=== PATIENT | female | born 1975 | race African-American/Black ===

== ENCOUNTER 2020-01-11 11:59 | Emergency (ER) | payer OTHER ==
[2020-01-11] MEDS ORDERED: ONDANSETRON 4 MG/2 ML VIAL ONE (13:21)
[2020-01-11] MEDS ORDERED: MORPHINE 4 MG/ML SYR ONE (13:21)
[2020-01-11 13:24] LABS: Absolute Lymphocytes (CBC) 1.5 K/uL (0.7-4.9); Basophils % 1.2 % (0-1.3); Hematocrit 36.7 % (36.0-45.0); MPV 7.9 fL (7.6-11.3); RBC Red Blood Cell Count 4.01 M/uL (3.86-4.86)
[2020-01-11 13:25] LABS: Urine Blood 3+ (NEG); Urine Glucose NEGATIVE (NEG); Urine Protein 2+ (NEG)
[2020-01-11 13:40] LABS: Albumin 3.5 g/dL (3.4-5.0); Bilirubin Direct 0.1 mg/dL (0-0.2); Bilirubin Total 0.9 mg/dL (0.2-1.0); Potassium 3.8 mmol/L (3.5-5.1); Protein, Total 7.5 g/dL (6.4-8.2)
--- NOTE | 2020-01-11 14:10 | RAD REPORT ---
EXAM DESCRIPTION: CT - Stone Protocol - 01/11/2020 1:48 pm CLINICAL HISTORY: left flank pain, pelvic pain COMPARISON: No comparisons TECHNIQUE: Axial 5 mm thick images were obtained without oral or IV contrast. The [id number] span s the entirety of the system including uppermost abdomen and lung bases. All CT scans are performed using dose optimization technique as appropriate and may include automated exposure control or mA/KV adjustment according to patient size. FINDINGS: No hydronephrosis is present and no obstructing ureteral calculi. No suspicious renal mass es. Isodense masses and pyelonephritis are not excluded on a stone protocol CT scan. No significant a drenal finding. Mostly contracted urinary bladder shows no suspicious findings. Prominent uterus is present. Myometrium is heterogeneous with no discrete myometrial based mass ident ifiable. Ovaries are difficult to clearly distinguished from the adjacent isodense on opacified bowel . There does appear to be in normal sized right ovary. In the low midline pelvis a cystic mass 6.9 x 6.7 x 6.0 cm is present. No fat, calcification or septation component. This is most likely a cystaden ariela given the CT characteristics. A more aggressive ovarian mass is not excluded. A non ovarian mesen teric cystic mass is possible but would be much less commonly encounter de. Phleboliths are seen in t he pelvic floor. In the posterior subcapsular right lobe liver there is a 4.3 x 1.7 centimeter low-attenuation mass. A ttenuation value is 27 Hounsfield units. No other focal liver parenchymal process seen. Spleen and pa ncreas show no suspicious findings. No gallbladder or biliary tree abnormality identified. No suspicious bowel findings. A 2.3 centimeter oval fluid attenuation mass in the right mid abdomen is likely an incidental mesenteric cyst. This is not regarded as significant. No hernia, mass or bulky lymphadenopathy noted. No free air, free fluid or inflammatory stranding. No significant bony abnormality. IMPRESSION: A 6.9 centimeter cystic mass fills the low midline pelvis. This is probably left ovarian in origin and most likely cystadenoma. No aggressive characteristics seen although based on size, outpatient surgical consultation would be recommended. Repeat imaging with oral and IV contrast or pelvic sonography may be helpful but would n ot likely substantially change the need for surgical consultation. No hydronephrosis, obstructing calculus or acute finding. Isodense masses and pyelonephritis are not excluded on stone protocol technique.
--- NOTE | 2020-01-11 15:21 | RAD REPORT ---
EXAM DESCRIPTION: US - Pelvis Complete - 01/11/2020 2:56 pm CLINICAL HISTORY: left sided pelvic pain, rule out torsion COMPARISON: Protocol dated 01/11/2020 TECHNIQUE: Transabdominal pelvic sonography was performed. FINDINGS: Uterus is approximately 9.1 x 4.3 x 5.9 cm. No endometrial or myometrial mass. No abnormal fluid collection in the cul de sac. Right ovary is normal size and shows normal blood flow in the ovarian stroma. Approximately [address] cystic mass is present in the midline pelvis appearing to arise from the left ovary. Left ovarian tissue is seen along the left lateral margin. Mass compresses the bladder. The large cystic mass thi n-walled with no septation or mural nodule. Cystadenoma remains the most likely etiology. IMPRESSION: Approximately 7 cm midline cystic mass is identified and is the correlate to the CT find ing. Mass appears to arise from the left ovary would be most likely be a cystadenoma. 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
--- NOTE | 2020-01-11 16:11 | ER ---
Nurse's Notes [facility] Name: Jayleen Albarado Age: 44 yrs Sex: Female : 1975 Arrival Date: 01/11/2020 Time: 12:04 Bed 18 Private MD: Diagnosis: Other ovarian cysts Presentation: 01/10 12:33 Chief complaint: Patient states: Woke up this morning with abdominal, back, and thigh rb3 pain. pain 5/10. 12:33 Coronavirus screen: At this time, the client does not indicate any symptoms associated rb3 with coronavirus-19. Ebola Screen: Patient denies travel to an Ebola-affected area in the 21 days before illness onset. Initial Sepsis Screen: Does the patient meet any 2 criteria? No. Patient's initial sepsis screen is negative. Does the patient have a suspected source of infection? Yes: No. Patient's initial sepsis screen is negative. Risk Assessment: Do you want to hurt yourself or someone else? Patient reports no desire to harm self or others. Onset of symptoms was January 11, 2020 at 09:00. 12:33 Method Of Arrival: Ambulatory rb3 12:33 Acuity: FREDDY 3 rb3 Triage Assessment: 12:33 General: Appears uncomfortable, Behavior is calm, cooperative. Pain: Complains of pain rb3 in LLQ, low back, thigh Pain currently is 5 out of 10 on a pain scale. Pain began 0900 today. Neuro: Level of Consciousness is awake, alert, obeys commands, Oriented to person, place, time, situation. Cardiovascular: Capillary refill < 3 seconds. Respiratory: Airway is patent Respiratory effort is even, unlabored, Respiratory pattern is regular, symmetrical. GI: Reports nausea. : No signs and/or symptoms were reported regarding the genitourinary system. 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 - Social history:: Smoking status: Patient/guardian denies using. Screenin:20 Abuse screen: Denies threats or abuse. Denies injuries from another. Nutritional ae4 screening: No deficits noted. Tuberculosis screening: No symptoms or risk factors identified. Fall Risk None identified. Assessment: 12:33 General: see triage assessment. rb3 13:30 Reassessment: Patient appears in no apparent distress at this time. No changes from rb3 previously documented assessment. 14:30 Reassessment: Patient appears in no apparent distress at this time. Patient and/or rb3 family updated on plan of care and expected duration. Pain level reassessed. Patient is alert, oriented x 3, equal unlabored respirations, skin warm/dry/pink. 15:30 Reassessment: Patient appears in no apparent distress at this time. No changes from rb3 previously documented assessment. 16:20 Reassessment: Patient appears in no apparent distress at this time. Patient and/or rb3 family updated on plan of care and expected duration. Pain level reassessed. Patient is alert, oriented x 3, equal unlabored respirations, skin warm/dry/pink. Vital Signs: 12:33 BP 129 / 86; Pulse 77; Resp 17; Temp 98.8; Pulse Ox 100% ; Weight 78.47 kg; Height 5 rb3 ft. 8 in. (172.72 cm); Pain 5/10; 13:30 BP 141 / 90; Pulse 81; Resp 17; Pulse Ox 100% ; rb3 14:30 BP 139 / 85; Pulse 74; Resp 16; Pulse Ox 100% ; rb3 15:30 BP 127 / 79; Pulse 80; Resp 17; Pulse Ox 100% ; rb3 12:33 Body Mass Index 26.30 (78.47 kg, 172.72 cm) rb3 ED Course: 12:04 Patient arrived in ED. as 12:33 Arm band placed on right wrist. rb3 12:33 Patient has correct armband on for positive identification. Bed in low position. Call rb3 light in reach. Side rails up X 1. 12:37 Tevin Milton PA is PHCP. [facility] 12:37 All Cervantes MD is Attending Physician. [facility] 12:43 Charlene Ornelas, JUAN is Primary Nurse. rb3 12:45 Triage completed. rb3 13:10 Initial lab(s) drawn, by va, sent to lab. Inserted saline lock: 20 gauge in right ca1 antecubital area, using aseptic technique. Blood collected. 13:48 CT Stone Protocol In Process Unspecified. EDMS 14:56 US Pelvis Complete In Process Unspecified. EDMS 16:08 Keven Shepherd MD is Referral Physician. m 16:19 IV discontinued, intact, bleeding controlled, No redness/swelling at site. Pressure ae4 dressing applied. 16:20 No provider procedures requiring assistance completed. rb3 Administered Medications: 13:18 Not Given (Patient Refused): morphine 4 mg IVP once; RASS on ADMIN: Combtv4, Very rb3 Agttd3, Agttd2, Rstlss1, AlertClm0, Drwsy-1, Lt Sdtn-2, Mod Sdtn-3, Dp Sdtn-4, UnArsble-5 13:18 Not Given (Patient Refused): Zofran (Ondansetron) 4 mg IVP once; over 2 minutes rb3 Outcome: 16:11 Discharge ordered by MD. [facility] 16:20 Discharged to home ambulatory, with significant other. ae4 16:20 Condition: stable 16:20 Discharge instructions given to patient, Instructed on discharge instructions, follow up and referral plans. medication usage, Demonstrated understanding of instructions, follow-up care, medications, Prescriptions given X 2. 16:21 Patient left the ED. ae4 Signatures: Dispatcher [employer] EDMS Tevin Milton PA PA jmm Martinez, Amelia as Acob, Cheryl, RN RN Chandan Clifton RN RN ae4 Charlene Ornelas RN RN rb3
--- NOTE | 2020-01-11 16:11 | EDPHYS ---
Physician Documentation [facility] Name: Jayleen Albarado Age: 44 yrs Sex: Female : 1975 Arrival Date: 01/11/2020 Time: 12:04 Bed 18 Private MD: ED Physician All Cervantes HPI: 01/10 12:52 This 44 yrs old Black Female presents to ER via Ambulatory with complaints of Abdominal jmm Pain, Thigh Pain, Low Back Pain. 12:52 The patient presents with abdominal pain in the left lower quadrant. Onset: The jmm symptoms/episode began/occurred acutely. The symptoms do not radiate. Associated signs and symptoms: Pertinent negatives: nausea and vomiting, diarrhea, fever. The symptoms are described as achy, sharp. Modifying factors: The symptoms are alleviated by nothing, the symptoms are aggravated by nothing. This is a 44 year old female with no chronic medical conditions that presents to the ED with complaints of left lower abdominal pain which awoke her this morning. Denies fever, vomiting, diarrhea. . 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 - Social history:: Smoking status: Patient/guardian denies using. ROS: 12:52 Constitutional: Negative for fever, chills, and weight loss, Cardiovascular: Negative jmm for chest pain, palpitations, and edema, Respiratory: Negative for shortness of breath, cough, wheezing, and pleuritic chest pain. 12:52 Abdomen/GI: Positive for abdominal pain. 12:52 Back: Positive for pain at rest. 12:52 All other systems are negative. Exam: 12:52 Constitutional: This is a well developed, well nourished patient who is awake, alert, jmm and in no acute distress. Head/Face: atraumatic. Eyes: EOMI, no conjunctival erythema appreciated ENT: Moist Mucus Membranes Neck: Trachea midline, Supple Chest/axilla: Normal chest wall appearance and motion. Cardiovascular: Regular rate and rhythm. No edema appreciated Respiratory: Normal respirations, no respiratory distress appreciated Abdomen/GI: Non distended, soft Back: Normal ROM Skin: General appearance color normal MS/ Extremity: Moves all extremities, no obvious deformities appreciated, no edema noted to the lower extremities Neuro: Awake and alert, normal gait Psych: Behavior is normal, Mood is normal, Patient is cooperative and pleasant Vital Signs: 12:33 BP 129 / 86; Pulse 77; Resp 17; Temp 98.8; Pulse Ox 100% ; Weight 78.47 kg; Height 5 rb3 ft. 8 in. (172.72 cm); Pain 5/10; 13:30 BP 141 / 90; Pulse 81; Resp 17; Pulse Ox 100% ; rb3 14:30 BP 139 / 85; Pulse 74; Resp 16; Pulse Ox 100% ; rb3 15:30 BP 127 / 79; Pulse 80; Resp 17; Pulse Ox 100% ; rb3 12:33 Body Mass Index 26.30 (78.47 kg, 172.72 cm) rb3 MDM: 12:52 Patient medically screened. [facility] 16:07 Data reviewed: vital signs, nurses notes. Counseling: I had a detailed discussion with gina the patient and/or guardian regarding: the historical points, exam findings, and any diagnostic results supporting the discharge/admit diagnosis, lab results, radiology results, the need for outpatient follow up, to return to the emergency department if symptoms worsen or persist or if there are any questions or concerns that arise at home. ED course: Pain is relieved in the ED. Large mass in pelvis discussed with the patient. Will follow up with ophthalmic technologist for further evaluation. Patient understood and agrees with the plan of care. . 01/10 13:00 Order name: Basic Metabolic Panel; Complete Time: 13:42 [facility] 01/10 13:00 Order name: CBC with Diff; Complete Time: 13:30 [facility] 01/10 13:00 Order name: Hepatic Function; Complete Time: 13:42 [facility] 01/10 13:00 Order name: Lipase; Complete Time: 13:42 [facility] 01/10 13:20 Order name: Urine Dipstick--Ancillary (enter results); Complete Time: 13:30 01/10 13:20 Order name: Urine --Ancillary (enter results); Complete Time: 13:30 01/10 13:00 Order name: IV Saline Lock; Complete Time: 13:12 [facility] 01/10 13:00 Order name: Labs collected and sent; Complete Time: 13:12 [facility] 01/10 13:00 Order name: Urine Dipstick-Ancillary (obtain specimen); Complete Time: 13:12 [facility] 01/10 13:00 Order name: Urine Test (obtain specimen); Complete Time: 13:12 [facility] 01/10 13:00 Order name: CT Stone Protocol; Complete Time: 14:12 [facility] 01/10 14:15 Order name: US Pelvis Complete; Complete Time: 15:42 [facility] Administered Medications: 13:18 Not Given (Patient Refused): morphine 4 mg IVP once; RASS on ADMIN: Combtv4, Very rb3 Agttd3, Agttd2, Rstlss1, AlertClm0, Drwsy-1, Lt Sdtn-2, Mod Sdtn-3, Dp Sdtn-4, UnArsble-5 13:18 Not Given (Patient Refused): Zofran (Ondansetron) 4 mg IVP once; over 2 minutes rb3 Disposition: 16:27 Co-signature as Attending Physician, All Cervantes MD. rn Disposition: 01/11/20 16:11 Discharged to Home. Impression: Other ovarian cysts. - Condition is Stable. - Discharge Instructions: Ovarian Cyst. - Prescriptions for Ibuprofen 800 mg Oral Tablet - take 1 tablet by ORAL route every 8 hours As needed take with food; 30 tablet. Tramadol 50 mg Oral Tablet - take 1 tablet by ORAL route every 8 hours as needed; 12 tablet. - Medication Reconciliation Form, Thank You Letter, Antibiotic Education, Prescription Opioid Use form. - Follow up: Keven Shepherd MD; When: 1 - 2 days; Reason: Recheck today's complaints, Continuance of care, Re-evaluation by your physician. Signatures: Dispatcher [employer] EDMS Tevin Milton PA PA [facility] All Cervantes MD MD rn Elliott, Andrea, RN RN ae4 Charlene Ornelas, JUAN RN rb3 Corrections: (The following items were deleted from the chart) 16:21 16:11 01/11/2020 16:11 Discharged to Home. Impression: Other ovarian cysts. Condition ae4 is Stable. Forms are Medication Reconciliation Form, Thank You Letter, Antibiotic Education, Prescription Opioid Use. Follow up: Keven Shepherd; When: 1 - 2 days; Reason: Recheck today's complaints, Continuance of care, Re-evaluation by your physician. gina
[2020-01-11 21:09] VITALS: TEMP 98.8; O2SAT 100
[2020-01-11 21:12] VITALS: BP 139/85
== END 2020-01-11 16:21 | disposition home or self-care (01) ==
LOC: ER 11:59
DX: N83.299 Other ovarian cyst, unspecified side (principal)
CPT/HCPCS: 36415; 74176; 76377; 76856; 80048; 80076; 81003; 81025; 83690; 85025; 99284; J2405

== ENCOUNTER 2024-04-06 20:31 | Emergency (ER) | payer BC, SELFPAY ==
--- OUTSIDE RECORDS SUMMARY | 2024-04-06 20:33 | XMS REPORT | Continuity of Care Document ---
Author Name Unknown Address [address] [place] [address] [facility] thconnect Address [address] [place] [address] Care Team Providers Care Vice President Education Name Role Phone Pcp, Patient Does Not Have A Primary Care Physic ji [email or web address] Attending Clinician Valerie lopez Doctor Unassigned, [place] Attending Clinician U Anastasia Cedeno MA Attending Clinician UnaROSITA Morales Attending Clinician Unavailable NASH ASHBY Attending Clinician Unavailable [email or web address] Admitting Clinician Valerie lopez Payers Payer Name Policy Type Policy Number Effective Date Expirati on Date Source [employer] CHOICE POS II [id number] 2019 00:00:00 Problems Condition Name Condition Details Condition Category Status Onset Date Resolution Date Last Treatment Date Treating Clinician Comments Source Breast tenderness in female Breast tenderness in female Disease Active 07-19 00:00: 00 [facility] Allergies, Adverse Reactions, Alerts Allergy Name Allergy Type Status Severity Reaction(s) Onset Date Inactive Date Treating Clinician Comments Source NO KNOWN ALLERGIE S Drug Class Active [facility] Social History Social Habit Start Date Stop Date Quantity Comments Source History of tobacco use Smoker [facility] Alcohol intake 2020-07-19 00:00:00 2020-07-19 00:00:00 Current drinker of alcohol (finding) [facility] Tobacco use and exposure 2020-01-12 00:00:00 2020-01-12 00:00:00 Never used [facility] History SDOH Alcohol Frequency 2020-01-12 00:00:00 2020-01-12 00:00:00 99 [facility] History SDOH Alcohol Std Drinks 2020-01-12 00:00:00 2020-01-12 00:00:00 99 [facility] History SDOH Alcohol Binge 2020-01-12 00:00:00 2020-01-12 00:00:00 99 [facility] Alcohol Comment 2020-01-12 00:00:00 2020-01-12 00:00:00 rarely [facility] Sex Ass[birth year] At 1975 00:00:00 1975 00:00:00 [facility] Smoking Status Start Date Stop Date Source Unknown if ever smoked [facility] Former smoker 2020-01-12 00:00:00 2020-01-12 00:00:00 [facility] Medications Ordered Medication Name Filled Medication Name Start Date Stop Date Current Medication? Ordering Clinician Indication Dosage Frequency Signature (SIG) Comments Components Source valACYclovi r (VALTREX) 1 gram tablet 05-25 00:00: 00 Yes [id number] 1g Take 1 tablet by mouth daily. Take for 5 days as needed for outbreaks [facility] ibuprofen 800 mg tablet 2019-02 00:00: 00 Yes [facility] traMADoL 50 mg tablet 2019-02 00:00: 00 Yes [facility] Procedures Procedure Date / Time Performed Performing Clinicia n Source EXTERNAL PROVIDER RECORDS 2021-02-14 06:01:00 Doctor Unassigned, [place] [facility] ASSIGNMENT OF BENEFITS 2020-01-12 21:23:42 Docto r Unassigned, [place] [facility] EXTERNAL MAMMOGRAM 2019-10-24 00:00:00 Doctor Un assigned, [place] [facility] Encounters Start Date/Time End Date/Time Encounter Type Admission Type Attending Clinicians Care Facility Care Department Encounter ID Source 2022-12-09 00:00:00 2022-12-09 00:00:00 Outpatient GC_GCBZW_Ka diyala_S [facility] [id number] [facility] 2021-02-14 00:00:00 2021-02-14 00:00:00 Orders Only Doctor Unassigned, [place] [facility] [id number] [facility] 2021-02-01 00:00:00 2021-02-01 00:00:00 Case Management TateAnastasia michele [id number] [facility] 2020-11-11 15:30:00 2020-11-11 15:30:00 Outpatient ROSITA HAMILTON [facility] [id number] General acute hospital 2020-09-06 09:00:00 2020-09-06 09:00:00 Outpatient ROSITA HAMILTON [facility] [id number] General acute hospital 2020-07-19 13:15:00 2020-07-19 13:15:00 Outpatient Bennie CATHYBRON [facility] [id number] General acute hospital 2020-06-01 10:55:00 2020-06-01 10:55:00 Outpatient NASH ASHBY [facility] [id number] [facility] 2020-05-04 10:40:00 2020-05-04 10:40:00 Outpatient [facility] [id number] [facility] 2020-01-12 15:30:00 2020-01-12 15:30:00 Outpatient Bennie MORGANBRON [facility] [id number] General acute hospital 2020-01-12 00:00:00 2020-01-12 00:00:00 Orders Only Doctor Unassigned, [place] [facility] [id number] 2020-01-12 00:00:00 2020-01-12 00:00:00 Orders Only Doctor Unassigned, [place] [facility] [id number] [facility]
--- NOTE | 2024-04-06 21:14 | ER ---
Nurse's Notes [facility] Name: Jayleen Albarado Age: 49 yrs Sex: Female : 1975 Arrival Date: 04/06/2024 Time: 20:31 Bed 5 Private MD: Diagnosis: Zoster without complications Presentation: 04/06 20:46 Chief complaint: Patient states: pain and redness in left breast, started this morning. iw Coronavirus screen: At this time, the client does not indicate any symptoms associated with coronavirus-19. Ebola Screen: No symptoms or risks identified at this time. Initial Sepsis Screen: Does the patient meet any 2 criteria? No. Patient's initial sepsis screen is negative. Does the patient have a suspected source of infection? No. Patient's initial sepsis screen is negative. Risk Assessment: Do you want to hurt yourself or someone else? Patient reports no desire to harm self or others. Onset of symptoms was April 06, 2024. 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 - Infectious Disease History:: Denies. - Social history:: Smoking status: Patient denies any tobacco usage or history of. Screenin:33 [facility] ED Fall Risk Assessment (Adult) History of falling in the last 3 months, cp4 including since admission No falls in past 3 months (0 pts) Confusion or Disorientation No (0 pts) Intoxicated or Sedated No (0 pts) Impaired Gait No (0 pts) Mobility Assist Device Used No (0 pt) Altered Elimination No (0 pt) Score/Fall Risk Level 0 - 2 = Low Risk Oriented to surroundings, Maintained a safe environment, Assessed \T\ reinforced patient's understanding of fall precautions, Hourly rounding (assess needs \T\ fall precautionary measures) done. Abuse screen: Denies threats or abuse. Nutritional screening: No deficits noted. Tuberculosis screening: No symptoms or risk factors identified. Assessment: 21:33 General: Appears in no apparent distress. comfortable, Behavior is calm, cooperative, cp4 appropriate for age. Pain: Complains of pain in chest Pain does not radiate. Pain currently is 7 out of 10 on a pain scale. Neuro: Level of Consciousness is awake, alert, obeys commands, Oriented to person, place, time, situation. Cardiovascular: Patient's skin is warm and dry. Respiratory: Airway is patent Respiratory effort is even, unlabored. GI: No signs and/or symptoms were reported involving the gastrointestinal system. : No signs and/or symptoms were reported regarding the genitourinary system. EENT: No signs and/or symptoms were reported regarding the EENT system. Derm: Reports breast redness and tenderness. Musculoskeletal: No signs and/or symptoms reported regarding the musculoskeletal system. Vital Signs: 20:46 BP 166 / 94; Pulse 100; Resp 16; Temp 97.1; Pulse Ox 99% on R/A; Pain 7/10; iw 20:46 Pain Scale: Adult ED Course: 20:35 Patient arrived in ED. gm2 20:37 Sascha Bardales MD is Attending Physician. sp3 20:47 Triage completed. iw 20:48 Arm band placed on. iw 21:33 Bed in low position. Call light in reach. Side rails up X 1. cp4 21:33 No provider procedures requiring assistance completed. Patient did not have IV access cp4 during this emergency room visit. 21:39 Milena Ray is Primary Nurse. cp4 21:40 Provided Education on: shingles. cp4 Administered Medications: No medications were administered Medication: 21:33 VIS not applicable for this client. cp4 Outcome: 21:13 Discharge ordered by . sp3 21:40 Discharged to home ambulatory, cp4 21:40 Condition: stable 21:40 Discharge instructions given to patient, family, Instructed on discharge instructions, follow up and referral plans. medication usage, Demonstrated understanding of instructions, follow-up care, medications, Prescriptions given X 3, 21:40 Patient left the ED. cp4 Signatures: Pam Kapadia, RN RN Sascha Bardales MD MD sp3 Milena Ray cp4 Antonette Massey gm2 Corrections: (The following items were deleted from the chart) 20:48 20:46 BP 166 / 94; Pulse 100bpm; Resp 16bpm; Pulse Ox 99% RA; Temp 97.1F; iw iw
--- NOTE | 2024-04-06 21:14 | EDPHYS ---
Physician Documentation [facility] Name: Jayleen Albarado Age: 49 yrs Sex: Female : 1975 Arrival Date: 04/06/2024 Time: 20:31 Bed 5 Private MD: ED Physician Sascha Bardales HPI: 04/06 21:10 This 49 yrs old Black Female presents to ER via Ambulatory with complaints of breast sp3 pain/ redness. 21:10 49-year-old female with no past medical history presents with red rash on her left sp3 chest area for the last 24 hours. Patient states that it has a burning sensation to it. No prior history of shingles. She just got [place] a cruise ship at which point she states she had a viral illness. She is currently on OTC meds for that and her symptoms there were just mild cough. She denies any break in the skin or trauma, marine exposure, fever, headache, neck pain, chest pain, shortness of breath, abdominal pain, vomiting, diarrhea, rash anywhere else, pain in any joints, or any other signs or symptoms on ROS at this time.. 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 - Infectious Disease History:: Denies. - Social history:: Smoking status: Patient denies any tobacco usage or history of. ROS: 21:11 Constitutional: Negative for fever, chills, and weight loss, Eyes: Negative for injury, sp3 pain, redness, and discharge, ENT: Negative for injury, pain, and discharge, Neck: Negative for injury, pain, and swelling, Cardiovascular: Negative for chest pain, palpitations, and edema, Respiratory: Negative for shortness of breath, cough, wheezing, and pleuritic chest pain, Abdomen/GI: Negative for abdominal pain, nausea, vomiting, diarrhea, and constipation, Back: Negative for injury and pain, MS/Extremity: Negative for injury and deformity, Neuro: Negative for headache, weakness, numbness, tingling, and seizure, Psych: Negative for depression, anxiety, suicide ideation, homicidal ideation, and hallucinations, Allergy/Immunology: Negative for hives, rash, and allergies, Endocrine: Negative for neck swelling, polydipsia, polyuria, polyphagia, and marked weight changes, Hematologic/Lymphatic: Negative for swollen nodes, abnormal bleeding, and unusual bruising, 21:11 All other systems are negative, Exam: 21:12 Constitutional: This is a well developed, well nourished patient who is awake, alert, sp3 and in no acute distress. Head/Face: Normocephalic, atraumatic. Eyes: Pupils equal round and reactive to light, extra-ocular motions intact. Lids and lashes normal. Conjunctiva and sclera are non-icteric and not injected. Cornea within normal limits. Periorbital areas with no swelling, redness, or edema. Neck: Trachea midline, no thyromegaly or masses palpated, and no cervical lymphadenopathy. Supple, full range of motion without nuchal rigidity, or vertebral point tenderness. No Meningismus. Chest/axilla: Normal chest wall appearance and motion. Nontender with no deformity. No lesions are appreciated. Cardiovascular: Regular rate and rhythm with a normal S1 and S2. No gallops, murmurs, or rubs. Normal PMI, no JVD. No pulse deficits. Respiratory: Lungs have equal breath sounds bilaterally, clear to auscultation and percussion. No rales, rhonchi or wheezes noted. No increased work of breathing, no retractions or nasal flaring. Abdomen/GI: Soft, non-tender, with normal bowel sounds. No distension or tympany. No guarding or rebound. No evidence of tenderness throughout. Back: No spinal tenderness. No costovertebral tenderness. Full range of motion. MS/ Extremity: Pulses equal, no cyanosis. Neurovascular intact. Full, normal range of motion. Neuro: Awake and alert, GCS 15, oriented to person, place, time, and situation. Cranial nerves II-XII grossly intact. Motor strength 5/5 in all extremities. Sensory grossly intact. Cerebellar exam normal. Normal gait. Psych: Awake, alert, with orientation to person, place and time. Behavior, mood, and affect are within normal limits. 21:12 Skin: Small area approximately 3 cm x 3 cm of patchy erythema slightly raised painful to touch without vesicles. Possible dermatomal pattern and orientation. No other symptoms anywhere else.. Vital Signs: 20:46 BP 166 / 94; Pulse 100; Resp 16; Temp 97.1; Pulse Ox 99% on R/A; Pain 7/10; iw 20:46 Pain Scale: Adult iw MDM: 20:56 Medical Screening Exam initiated sp3 21:12 Data reviewed: vital signs, nurses notes. ED course: Differential diagnosis includes sp3 zoster, cellulitis, viral exanthem, among others. Hematology suspicious of sepsis, shock or any critical illness. Will treat with prednisone and antiviral agent with close follow-up. I do not believe it is cellulitic and does not require antibiotics at this time. Urged patient to return for any change in pattern or worsening concerns.. Administered Medications: No medications were administered Disposition Summary: 04/06/24 21:13 Discharge Ordered Notes: Location: Home sp3 Condition: Stable sp3 Diagnosis - Zoster without complications sp3 Followup: sp3 - With: Private Physician - When: Upon discharge from the Emergency Department - Reason: Continuance of care Discharge Instructions: - Discharge Summary Sheet sp3 - Shingles sp3 Forms: - Medication Reconciliation Form sp3 - Antibiotic Education sp3 - Prescription Opioid Use sp3 - Patient Portal Instructions sp3 - Leadership Thank You Letter sp3 Prescriptions: - valacyclovir 1 gram Oral tablet - take 1 tablet ORAL route every 8 hours; 21 tablet; Refills: 0, Product sp3 Selection Permitted - gabapentin 100 mg Oral tablet - take 1 tablet ORAL route every 12 hours; 10 tablet; Refills: 0, Product sp3 Selection Permitted - Prednisone 20 mg Oral Tablet - take 2 tablets ORAL route once daily for 5 days; 10 tablet; Refills: 0, Product sp3 Selection Permitted Signatures: Pam Kapadia, RN RN iw Sascha Bardales MD MD sp3
[2024-04-06 22:04] VITALS: BP 166/94; TEMP 97.1; O2SAT 99
== END 2024-04-06 21:40 | disposition home or self-care (01) ==
LOC: ER 20:31
DX: B02.9 Zoster without complications (principal)
CPT/HCPCS: 99283